=== PATIENT | female | born 1990 | race African-American/Black ===

== ENCOUNTER 2016-05-04 14:43 | Emergency (ER) | payer OTHER ==
[~2016-05-04] VITALS: Ht 167.6 cm; Wt 213.5 kg
[2016-05-04] MEDS: IBUPROFEN 800 MG TABLET PO ONE (17:43)
[2016-05-04 17:47] VITALS: BP 134/80
== END 2016-05-04 17:49 | disposition home or self-care (01) ==
LOC: EMS 14:44
DX: S39.012A Strain of muscle, fascia and tendon of lower back, initial encounter (principal); V43.52XA Car driver injured in collision with other type car in traffic accident, initial encounter; Y93.89 Activity, other specified; Y92.512 Supermarket, store or market as the place of occurrence of the external cause; Y99.8 Other external cause status
CPT/HCPCS: 99282; 99283